=== PATIENT | female | born 1965 | race Caucasian/White ===

== ENCOUNTER 2019-11-15 04:51 | Emergency (ER) | payer BC ==
[~2019-11-15] VITALS: Ht 157.4 cm; Wt 97.1 kg
[~2019-11-15 04:51] MED LIST: AMLO5TAB9 PO; AZIT250T81 PO; LOSA50TA6 PO; METO-352 PO; NF-ESOM40C PO; PRD20T PO
--- NOTE | 2019-11-15 05:16 | ED Upper Extremity ---
General Chief Complaint: Upper Extremity Stated Complaint: LEFT SHOULDER PAIN Source: patient (DIMA LIRIANO STUDENT) History of Present Illness Date Seen by Provider: Nov 15, 2019 Time Seen by Provider: 05:03 Initial Comments This is a 53 YO female who presents to the ED with left shoulder pain that she noticed Sunday night. 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 She denies any specific injury or trauma, but says the repetitive physical activity of her job has been worsening it. Pt says pain is a dull ache at rest and is worsened with trying to move her shoulder. She has tried ice and heating pads as well as taking Ibuprofen and Cyclobenzaprine from a prior operation with minimal improvement. Onset: other (5 days ago) Pain/Injury Location: left shoulder Modifying Factors: Improves With Immobilization; Worse With Movement (DIMA LIRIANO) Allergies and Home Medications Allergies Coded Allergies: No Known Drug Allergies (Unverified , 04/24/14) Home Medications Amlodipine Besylate 5 Mg Tablet, 5 MG PO DAILY, (Reported) Esomeprazole Mag Trihydrate 40 Mg Capsule.dr, 40 MG PO DAILY, (Reported) Losartan Potassium 50 Mg Tablet, 50 MG PO BID, (Reported) Metoprolol Succinate 50 Mg Tab, 100 MG PO DAILY, (Reported) Metoprolol Succinate 50 Mg Tab, 50 MG PO HS, (Reported) Patient Home Medication List Home Medication List Reviewed: Yes (SHERI RHOADES MD) Review of Systems Constitutional: no symptoms reported EENTM: no symptoms reported Respiratory: no symptoms reported Cardiovascular: no symptoms reported Gastrointestinal: no symptoms reported Genitourinary: no symptoms reported Musculoskeletal: see HPI Skin: no symptoms reported Psychiatric/Neurological: No Symptoms Reported (SHERI RHOADES MD) Past Qnbtkvg-Lqhpvb-Tpohgn Hx Past Med/Social Hx: Reviewed Nursing Past Med/Soc Hx (SHERI RHOADES MD) Patient Social History Recent Foreign Travel: No Contact w/Someone Who Travel: No Recent Hopitalizations: No (DIMA LIRIANO) Immunizations Up To Date Date of Influenza Vaccine: Dec 17, 2013 (DIMA LIRIANO) Seasonal Allergies Seasonal Allergies: No (DIMA LIRIANO) Past Medical History Section, Tubal Ligation Hypertension Reproductive Disorders: No Adverse Reaction/Blood Tranf: No (DIMA LIRIANO STUDENT) Surgeries: Yes Section Respiratory: No Cardiac: Yes Hypertension Neurological: No : No Reproductive Disorders: No Genitourinary: No Gastrointestinal: No Musculoskeletal: No Endocrine: No HEENT: No Cancer: No Did You Recieve Any Treatments: No Psychosocial: No Integumentary: No (SHERI RHOADES MD) Family Medical History Cancer (DIMA LIRIANO) Physical Exam Vital Signs Vital Signs - First Documented 11/15/19 05:01 Temp 36.7 Pulse 97 Resp 20 B/P (MAP) 146/109 (121) Pulse Ox 97 O2 Delivery Room Air (SHERI RHOADES MD) Vital Signs Capillary Refill : (DIMA LIRIANO) Height, Weight, BMI Height: 5'4" Weight: 200lbs. oz. 90.725232mu; 36.31 BMI Method:Stated General Appearance: WD/WN, other (appear uncomfortable) HEENT: other (EOMI) Neck: supple, normal inspection Cardiovascular: normal peripheral pulses, regular rate, rhythm, no murmur Respiratory: lungs clear, normal breath sounds, no respiratory distress, no accessory muscle use Shoulder: no evidence of injury; No bone tenderness, No deformity; limited ROM (secondary to pain) Elbow/Forearm: normal inspection, no evidence of injury Wrist: Yes normal inspection, Yes no evidence of injury Hand: normal inspection, no evidence of injury Neurologic/Tendon: normal sensation Neurologic/Psychiatric: no motor/sensory deficits, alert, normal mood/affect, oriented x 3 Skin: normal color, warm/dry Lymphatic: no adenopathy (DIMA LIRIANO) Procedures/Interventions Progress After verbal informed consent with discussion of risks and benefits including pain, infection, and steroid adverse effects, localized steroid injection was administered. The region of focal tenderness was identified and marked with skin depression. Skin was then prepped with Betadine. Sterile gloves were then used to inject a combination of 3 mL Marcaine and 40 mg of triamcinolone. Patient tolerated the procedure well. She had significant improvement in pain and range of motion within minutes of the injection. (SHERI RHOADES MD) Progress/Results/Core Measures Results/Orders My Orders (SHERI RHOADES MD) Medications Given in ED (SHERI RHOADES MD) Vital Signs/I&O (SHERI RHOADES MD) Departure Impression Primary Impression: Biceps tendinitis of left shoulder Disposition: 01 HOME, SELF-CARE Condition: Improved Departure-Patient Inst. Decision time for Depature: 06:27 (SHERI RHOADES MD) [place]: [facility] [place] Primary Care Physician Patient Instructions: Tendonitis (DC) Add. Discharge Instructions: Rest your shoulder over the weekend. Perform gentle range of motion exercises to help keep the shoulder limber. Avoid any strenuous activity with the shoulder until pain improves. You may ice in 20 minute intervals to help reduce pain and swelling. You may take ibuprofen up to 600 mg every 6 hours and Tylenol (acetaminophen) up to 1000 mg every 6 hours. Follow-up with your primary care provider if you have persistent problems and pain with your shoulder. All discharge instructions reviewed with patient and/or family. Voiced understanding. I have personally seen and examined this patient along with Dima Liriano, MS 3, I have reviewed MS 3 documentation and agree with her history, physical, and assessments except were otherwise noted. Exam: Gen.: Alert, oriented, no acute distress HEENT: Normocephalic and atraumatic Heart: Regular rate and rhythm without murmur Lungs: Clear to auscultation bilaterally Neuropsych: Alert, oriented, no focal deficits Extremities: There is limited range of motion in the left shoulder, especially with abduction secondary to pain. There is focal tenderness near the biceps insertion. Distal sensation and radial pulse intact. After informed consent verbally patient elected to proceed with localized injection of Marcaine and triamcinolone. See procedure note. Patient tolerated the procedure well and had nearly immediate improvement in her symptoms. (SHERI RHOADES MD) Copy Copies To 1: GREG ROSA CHRISTINE MED STUDENT Nov 15, 2019 05:16 SHERI RHOADES MD Nov 15, 2019 06:29
[2019-11-15] MEDS ORDERED: TRIAMCINOLONE ACET (KENALOG-40) 40 MG/ML 1 ML VIAL IA ONE (06:00)
[2019-11-15] MEDS ORDERED: BUPIVACAINE 0.5% 30 ML (SENSORCAINE) VIAL INJ ONE (06:00)
[2019-11-15 06:33] VITALS: BP 148/95
== END 2019-11-15 06:35 | disposition home or self-care (01) ==
LOC: EDUNIT# 04:51 → ER 04:57
DX: M75.22 Bicipital tendinitis, left shoulder (principal); I10 Essential (primary) hypertension; Z80.9 Family history of malignant neoplasm, unspecified
CPT/HCPCS: 99284